=== PATIENT | male | born 1950 | race Caucasian/White ===

== ENCOUNTER 2021-07-12 08:04 | Outpatient (CLI) | payer MEDICARE, SELFPAY ==
[2021-07-12 09:12] LABS: Basophils % 0.6 %; Eosinophils # 0.5 10^3/uL (0.0-0.8); Eosinophils % 6.9 %; Hematocrit 45.3 % (42.0-52.0); Hemoglobin 15.9 g/dL (11.7-16.6); Lymphocytes # 1.2 10^3/uL (0.8-4.8); Lymphocytes % 17.6 %; Mean Corpuscular HGB Conc 35.1 g/dL (30.0-36.0); Mean Corpuscular Hemoglobin 31.4 pg (28.0-34.0); Mean Corpuscular Volume 89.3 fl (80-94); Mean Platelet Volume 9.9 fL (7.4-10.4); Monocytes # 0.4 10^3/uL (0.2-0.9); Monocytes % 5.4 %; Neutrophils # 4.73 10^3/uL (1.8-7.7); Neutrophils % 69.4 %; Nucleated Red Blood Cells % 0 %; Platelet Count 156 10^3/cmm (130-400); Red Blood Count 5.07 10^6/uL (4.1-5.3); Red Cell Distribution Width 13.6 % (12.1-15.1); White Blood Count 6.8 10^3/uL (4.0-10.0)
--- NOTE | 2021-07-16 12:05 | ONC CON_ITS ---
Dr. Quintanilla New Patient Note Patient: Bao Sales Unit #: [id number]: 1950 Dicatated By: Che Quintanilla M.D.Date of Visit: Jul 12, 2021 Onc MED New Patient/Consult Referring Physician: Jossie Hills History of Present Illness: Mr. Bao Sales, 71-year-old gentleman, recently went to [facility] clinic for evaluation and lab work-up done on June 03, 2021 showed platelet count 119,000 normal being 134 -377, hemoglobin 14.8 g hematocrit 44.9, white blood count 7.1 with normal differential, patient denies any history of thrombocytopenia in the past, denies any history of gross bleeding, denies any history of recent infection or flulike symptoms, denies any history of new medication, denies any history of abdominal fullness denies any history of night sweats or recurrent fever but about 10 pound weight loss. Denies any history of lymphadenopathy Patient denies Family history of smoking but drinks occasionally Past Medical History: Mr. Sales's medical history consists of coronary artery disease, hyperlipidemia, and myocardial infarction. Past Surgical History: Mr. Sales's surgical/procedural history consists of cardiac stent in 2009 and triple cardiac bypass in 2008. Medications: Aspirin 1 Tablet (of 325 mg) Oral daily, Atorvastatin Calcium 1 Tablet (of 40 mg) Oral daily, Fluticasone Propionate 1 [place](s) (of 50 mcg/act) Suspension Nasal daily, Ventolin HFA 2 Puff(s) (of 108 (90 base) mcg/act) Aerosol, solution Inhalation q 4 hours PRN Allergies: No Known Allergies. Social History: Mr. Sales is single. Mr. Sales has never smoked. He has no history of drinking. Family History: There is no documented family history. Review Of Symptoms: Review of Systems is not available for this patient. Vital Signs: Performed on Jul 12, 2021 11:21: 0, 0, 27.47, 2.00 sq.m, 69 in, 98 %, 55 /min (LOW), 18 /min, 163/78 mm(hg) (HIGH), 98.0 F (LOW), and 186 lbs (HIGH). Performance Status: 0 - Fully active, able to carry on all predisease activities without restrictions. (ECOG) Physical Examination: ENMT - No mouth sores, no thrush, no jaundice no cervical lymphadenopathy, Respiratory - Lungs are clear to auscultation, Cardiovascular - Regular rate and rhythm of heart, Abdomen - Soft, bowel sounds present, Extremities - No visible edema. Lab/Imaging: Most recent lab results are not available for this patient. Impression: Mild isolated thrombocytopenia, etiology unclear could be due to medication, subclinical infection, transient thrombocytopenia, mild ITP, lab error or platelet clumping. Coronary artery disease Hypercholesterolemia Plan: Discussed with patient regarding his labs from today white blood count 6.8 hemoglobin 15.9 hematocrit 45.3 platelets 156,000, normal being 130- 400k, with a normal differential Clinically, patient doing well with no new signs symptom suggestive of gross bleeding, his repeat CBC done today shows resolution of mild isolated thrombocytopenia, at this point no further work-up rather observation, patient return to clinic in 1 month with CBC if normal, will see him on as-needed basis Signed By: Che Quintanilla M.D. <<Signature on File>>
== END 2021-07-12 08:05 | disposition home or self-care (01) ==
LOC: ONCMED 08:12
PROVIDERS: Visit Provider Internal Medicine Hematology & Oncology
DX: D69.6 Thrombocytopenia, unspecified (principal); I25.10 Atherosclerotic heart disease of native coronary artery without angina pectoris; E78.00 Pure hypercholesterolemia, unspecified; Z79.899 Other long term (current) drug therapy
CPT/HCPCS: 36415; 85025; 99204